=== PATIENT | female | born 1985 | race African-American/Black ===

== ENCOUNTER 2022-03-05 18:18 | Inpatient (IN) | payer BC ==
[~2022-03-05] VITALS: Ht 149.9 cm; Wt 73.5 kg
[~2022-03-05 18:18] MED LIST: OXYTOCIN 10 UNITS/ML 1ML ONE
[2022-03-05] MEDS ORDERED: RHO(D) IMMUNE GLOBULIN 300 MCG/SYR IM NR (19:00)
[2022-03-05] MEDS ORDERED: LIDOCAINE HCL 1% 20ML VIAL (Pyxis) INJ INFIL SCH (19:00)
[2022-03-05] MEDS ORDERED: BUTORPHANOL TARTRATE 2 MG/ML VIAL IV PRN (19:00)
[2022-03-05] MEDS ORDERED: CARBOPROST TROMETHAMINE 250 MCG/ML AMPUL IM PRN (19:00)
[2022-03-05] MEDS ORDERED: RHO(D) IMMUNE GLOBULIN 300 MCG/SYR IM ONE (19:00)
[2022-03-05] MEDS ORDERED: NALOXONE HCL 0.4 MG/ML 1ML VIAL IM PRN (19:00)
[2022-03-05] MEDS ORDERED: METHYLERGONOVINE MALEATE 0.2 MG/ML IM PRN ×2 (19:00→20:45)
[2022-03-05] MEDS ORDERED: MISOPROSTOL 100MCG TABLET VG SCH (19:00)
[2022-03-05] MEDS ORDERED: DEXT 5%/LR + PITOCIN 20UNITS/L 1,000 ML IV SCH ×2 (19:15→20:45)
[2022-03-05] MEDS ORDERED: BETAMETHASONE ACET/BETAMET 30 MG/5 ML VIAL IM NR (19:15)
[2022-03-05] MEDS ORDERED: LACTATED RINGERS 1,000 ML IV SCH (19:15)
[2022-03-05 19:32] LABS: HEMATOCRIT. 29.7 % (36.0-48.0); HEMOGLOBIN. 9.7 g/dL (12.0-16.0); MEAN CORPUSCULAR HEMOGLOBIN 29.8 pg (28.0-32.0); MEAN CORPUSCULAR VOLUME 90.9 fL (81.0-99.0); MEAN PLATELET VOLUME 9.1 fl (7.4-10.4); PLATELET 278 x1000/uL (130-400); RED BLOOD CELL COUNT 3.26 mill/uL (4.2-5.4); RED CELL DISTRIBUTION WIDTH 15.1 % (11.6-14.6)
[2022-03-05] MEDS ORDERED: PENICILLIN G POTASSIUM 5 MMU in DEXT 5% WATER 100 ML IV NR (20:00)
[2022-03-05 20:10] LABS: NUCLEATED RED BLOOD CELLS 2 /100 WBC; PLATELET ESTIMATE NORMAL
[2022-03-05] MEDS ORDERED: LANOLIN OINT 7GM TUBE TOP PRN (20:45)
[2022-03-05] MEDS ORDERED: DIPHENHYDRAMINE 25MG CAPSULE PO PRN (20:45)
[2022-03-05] MEDS ORDERED: BISACODYL 10MG SUPP PR PRN (20:45)
[2022-03-05] MEDS ORDERED: RHO(D) IMMUNE GLOBULIN 300 MCG/SYR IM PRN (20:45)
[2022-03-05] MEDS ORDERED: BENZOCAINE/LANOLIN/ALOE VERA SPRAY TOP PRN (20:45)
[2022-03-05] MEDS ORDERED: IBUPROFEN 400MG TABLET PO PRN (20:45)
[2022-03-05] MEDS ORDERED: GLYCERIN/WITCH HAZEL LEAF MEDICATED PAD TOP PRN (20:45)
[2022-03-05] MEDS ORDERED: ACETAMINOPHEN WITH CODEINE 300/30MG TABLET PO PRN (20:45)
[2022-03-05] MEDS ORDERED: HEMORRHOIDAL SUPP PR PRN (20:45)
[2022-03-05 20:59] LABS: HEPATITIS B SURFACE ANTIGEN NEGATIVE
[2022-03-05] MEDS ORDERED: DOCUSATE SODIUM 100MG CAPSULE PO SCH (21:00)
[2022-03-05] MEDS: IBUPROFEN 800MG TABLET PO PRN ×2 (21:04→23:04)
[2022-03-05 22:20] VITALS: BP 119/61
[2022-03-05] MEDS ORDERED: PREN1TAB23 PO (22:34)
[2022-03-06] MEDS ORDERED: PENICILLIN G POTASSIUM 2.5 MMU in DEXTROSE 5% WATER 50 ML IV SCH ×2
[2022-03-06 04:00] VITALS: BP 121/65
[2022-03-06 07:20] LABS: HEMATOCRIT. 27.5 % (36.0-48.0); HEMOGLOBIN. 9.1 g/dL (12.0-16.0); MEAN CORPUSCULAR HEMOGLOBIN 30.3 pg (28.0-32.0); MEAN CORPUSCULAR VOLUME 91.6 fL (81.0-99.0); PLATELET 247 x1000/uL (130-400); RED CELL DISTRIBUTION WIDTH 15.1 % (11.6-14.6)
[2022-03-06 07:26] LABS: CLARITY URINE CLEAR (CLEAR); COLOR URINE YELLOW (YELLOW); KETONES URINE NEGATIVE (NEGATIVE); LEUKOCYTE ESTERASE URINE TRACE (NEGATIVE); NITRITE URINE NEGATIVE (NEGATIVE); OCCULT BLOOD URINE 3+ (NEGATIVE); PH URINE 5.5 (4.5-8.0); PROTEIN URINE NEGATIVE (NEGATIVE); SPECIFIC GRAVITY URINE 1.009 (1.005-1.030); UROBILINOGEN URINE 0.2 E.U./dL (0.2-1.0)
[2022-03-06 07:41] LABS: *AMPHETAMINES SCREEN URINE NEGATIVE (NEGATIVE); *BARBITURATES SCREEN URINE NEGATIVE (NEGATIVE); *BENZODIAZEPINES SCREEN URINE NEGATIVE (NEGATIVE); *COCAINE SCREEN URINE NEGATIVE (NEGATIVE); CANNABINOID URINE SCREEN NEGATIVE (NEGATIVE); METHADONE URINE SCREEN NEGATIVE (NEGATIVE); OPIATES URINE SCREEN NEGATIVE (NEGATIVE); PHENCYCLIDINE URINE SCREEN NEGATIVE (NEGATIVE)
[2022-03-06 08:00] VITALS: BP 118/64
[2022-03-06] MEDS: MAGNESIUM/ALUMINUM HYDROXIDE/SIMETHICONE 30ML UDC PO SCH ×2 (08:14→18:00)
[2022-03-06] MEDS: IBUPROFEN 800MG TABLET PO PRN (08:14)
[2022-03-06] MEDS: FERROUS SULFATE 325MG TABLET PO SCH ×2 (08:15→18:00)
[2022-03-06] MEDS: PRENATAL VIT/FE FUMARATE/FA TABLET PO SCH (08:15)
[2022-03-06 11:03] LABS: PLATELET ESTIMATE NORMAL
[2022-03-06 16:00] VITALS: BP 114/65
[2022-03-06 20:00] VITALS: BP 124/76
[2022-03-07 05:30] VITALS: BP 110/72
[2022-03-07] MEDS: IBUPROFEN 800MG TABLET PO PRN ×2 (05:38→11:26)
[2022-03-07 06:28] LABS: BASOPHILS % 0.2 % (0.0-2.0); EOSINOPHILS % 1.8 % (0.0-5.0); HEMATOCRIT. 26.1 % (36.0-48.0); HEMOGLOBIN. 8.8 g/dL (12.0-16.0); LYMPHOCYTES % 14.3 % (20.0-50.0); MEAN CORPUSCULAR HEMOGLOBIN 30.1 pg (28.0-32.0); MEAN PLATELET VOLUME 8.8 fl (7.4-10.4); MONOCYTES % 9.8 % (2.0-8.0); NEUTROPHILS % 73.9 % (40.0-76.0); PLATELET 267 x1000/uL (130-400); RED BLOOD CELL COUNT 2.94 mill/uL (4.2-5.4); RED CELL DISTRIBUTION WIDTH 14.7 % (11.6-14.6)
[2022-03-07] MEDS ORDERED: FERR-63 PO (07:29)
[2022-03-07] MEDS ORDERED: IBUP-2028 PO (07:29)
[2022-03-07 08:00] VITALS: BP 120/70
[2022-03-07] MEDS: MAGNESIUM/ALUMINUM HYDROXIDE/SIMETHICONE 30ML UDC PO SCH (11:26)
[2022-03-07] MEDS: PRENATAL VIT/FE FUMARATE/FA TABLET PO SCH (11:27)
== END 2022-03-07 11:30 | disposition home or self-care (01) | DRG 805 ==
LOC: OBSVTOIN 18:18 → 8 EST LDRP 18:18 → 8EST 22:20
PROVIDERS: ADMIT Obstetrics & Gynecology; ATTEND Obstetrics & Gynecology
PROC: 10E0XZZ Delivery of Products of Conception, External Approach (ICD-10-PCS; principal; 2022-03-05)
DX: O44.13 Complete placenta previa with hemorrhage, third trimester (principal); O60.14X0 Preterm labor third trimester with preterm delivery third trimester, not applicable or unspecified; Z37.0 Single live birth; Z3A.28 28 weeks gestation of pregnancy
CPT/HCPCS: 36415; 76815; 80305; 81003; 84550; 85025; 86592; 86703; 86762; 86850; 86900; 87340; 87426; 88307; 99281; J2540; J2590; J7060